=== PATIENT | male | born 1975 | race Caucasian/White ===

== ENCOUNTER 2019-05-31 20:48 | Emergency (ER) | payer MEDICAID ==
[~2019-05-31] VITALS: Ht 180.3 cm; Wt 88.6 kg
[2019-05-31 20:54] VITALS: BP 151/101
[2019-05-31] MEDS ORDERED: KETO15CR2 TOP (21:19)
== END 2019-05-31 21:29 | disposition home or self-care (01) ==
LOC: ER 20:52
DX: B35.3 Tinea pedis (principal); L08.89 Other specified local infections of the skin and subcutaneous tissue; Z88.1 Allergy status to other antibiotic agents; Z79.899 Other long term (current) drug therapy
CPT/HCPCS: 99283

== ENCOUNTER 2019-06-05 22:23 | Emergency (ER) | payer MEDICAID ==
[~2019-06-05] VITALS: Ht 180.3 cm; Wt 90.0 kg
[~2019-06-05 22:23] MED LIST: KETO15CR2 TOP
[2019-06-05] MEDS ORDERED: MUPI22OI30 TOP (22:56)
[2019-06-05] MEDS ORDERED: SULF1TAB49 PO (22:56)
[2019-06-05 23:12] VITALS: BP 153/99
== END 2019-06-05 23:15 | disposition home or self-care (01) ==
LOC: ER 22:24
DX: L03.115 Cellulitis of right lower limb (principal); Z86.14 Personal history of Methicillin resistant Staphylococcus aureus infection; Z88.1 Allergy status to other antibiotic agents; Z79.2 Long term (current) use of antibiotics; Z79.899 Other long term (current) drug therapy
CPT/HCPCS: 99283

== ENCOUNTER 2019-08-17 13:14 | Emergency (ER) | payer MEDICAID ==
[~2019-08-17] VITALS: Ht 180.3 cm; Wt 87.3 kg
[2019-08-17 13:26] VITALS: BP 145/96
[2019-08-17] MEDS ORDERED: MUPI22OI30 TP (16:19)
[2019-08-17] MEDS ORDERED: NALO4SPR NS (16:19)
== END 2019-08-17 16:26 | disposition home or self-care (01) ==
LOC: ER 13:15
DX: S31.000D Unspecified open wound of lower back and pelvis without penetration into retroperitoneum, subsequent encounter (principal); S51.001D Unspecified open wound of right elbow, subsequent encounter; S71.101D Unspecified open wound, right thigh, subsequent encounter; R11.0 Nausea; R53.83 Other fatigue; R50.9 Fever, unspecified; Z86.14 Personal history of Methicillin resistant Staphylococcus aureus infection; Z88.1 Allergy status to other antibiotic agents; Z79.899 Other long term (current) drug therapy; X58.XXXD Exposure to other specified factors, subsequent encounter
CPT/HCPCS: 99283

== ENCOUNTER 2019-08-23 13:51 | Emergency (ER) | payer MEDICAID ==
[~2019-08-23] VITALS: Ht 180.3 cm; Wt 87.3 kg
[~2019-08-23 13:51] MED LIST changes: +MUPI22OI30 TP; +NALO4SPR NS
--- NOTE | 2019-08-23 16:03 | NUR ---
Dr. Clay is in the room with the patient at this time.
[2019-08-23] MEDS ORDERED: ibuprofen tablet 400 MG TABLET PO ONE (16:15)
[2019-08-23] MEDS ORDERED: IBUP-1985 PO (16:17)
[2019-08-23 16:37] VITALS: BP 125/74
== END 2019-08-23 16:36 | disposition home or self-care (01) ==
LOC: ER 13:52
DX: M54.5 Low back pain (principal); Z86.14 Personal history of Methicillin resistant Staphylococcus aureus infection; Z72.89 Other problems related to lifestyle; Z88.1 Allergy status to other antibiotic agents; Z79.899 Other long term (current) drug therapy
CPT/HCPCS: 99282